=== PATIENT | male | born 1940 | race African-American/Black ===

== ENCOUNTER 2023-04-12 10:00 | Inpatient (IN) | payer MEDICAID, SELFPAY ==
[~2023-04-12] VITALS: Ht 172.7 cm; Wt 92.8 kg
[2023-04-12] VITALS (10 sets, daily range): BP systolic 83–100; BP diastolic 47–63; PULSE 91–117; RESP 18–36; TEMP 97.8–99.1; O2SAT 92–100
[~2023-04-12 10:00] MED LIST: ATEN-72 PO; OLAN15TA2 PO; QUET200T PO
[2023-04-12 10:45] LABS: BASOPHILS % (AUTO) 0.1 % (0.0-2.0); EOSINOPHILS % (AUTO) 3.4 % (1.0-6.0); HEMATOCRIT 39.5 % (41-53); HEMOGLOBIN 13.6 g/dL (13.5-17.5); LYMPHOCYTES # (AUTO) 1.3 K/uL (1.0-4.8); LYMPHOCYTES % (AUTO) 6.5 % (22.0-44.0); MEAN CORPUSCULAR HGB CONC 34.3 G/dL (31.0-37.0); MEAN CORPUSCULAR VOLUME 99 fL (80-100); MONOCYTES # (AUTO) 0.9 K/uL (0.1-1.0); MONOCYTES % (AUTO) 4.7 % (2.0-9.0); NEUTROPHILS % (AUTO) 85.3 % (40.0-70.0); PLATELET COUNT (AUTO) 156 K/uL (150-450); RBC MORPHOLOGY COMMENT NORMAL RBC MORPH; RED BLOOD CELL COUNT(AUTO) 3.99 MIL/uL (4.50-5.90); RED CELL DISTRIBUTION WIDTH 14.2 % (11.5-14.5)
[2023-04-12 10:56] LABS: CALCIUM, TOTAL 7.4 mg/dL (8.8-10.5); CREATININE 6.13 mg/dL (0.60-1.30); POTASSIUM 5.5 mmol/L (3.5-5.1)
[2023-04-12 10:58] LABS: INR 1.2 (0.9-1.1); PROTHROMBIN TIME 12.2 SEC (9.4-11.6)
[2023-04-12] MEDS ORDERED: MIDAZOLAM HCL 2 MG/2 ML VIAL IVP ONE (11:00)
[2023-04-12] MEDS ORDERED: ROCURONIUM BROMIDE 10 MG/ML 5 ML VIAL IVP ONE (11:00)
[2023-04-12 11:07] LABS: TROPONIN I-HIGH SENSITIVITY 141 ng/L (<76)
[2023-04-12 11:16] LABS: ALBUMIN 2.6 g/dL (3.4-5.0); BILIRUBIN,TOTAL 1.2 mg/dL (0.1-1.0); TOTAL PROTEIN, SERUM 6.6 g/dL (6.4-8.2)
[2023-04-12] MEDS ORDERED: SODIUM CHLORIDE 0.9% 1,250 ML IV ONE (11:30)
[2023-04-12] MEDS ORDERED: BISACODYL 10 MG RECTAL RECTAL SUPPOSITORY PR PRN (11:30)
[2023-04-12] MEDS ORDERED: ONDANSETRON HCL 4 MG/2 ML VIAL IVP PRN (11:30)
[2023-04-12 11:37] LABS: ABG BASE EXCESS -12.3 mmol/L (-2.0-3.0); ABG CARBOXYHEMOGLOBIN 0.3 % (0.0-1.5); ABG HCO3 15.7 mmol/L (22.0-26.0); ABG METHEMOGLOBIN 0.5 % (0.0-1.5); ABG OXYGEN CONTENT 19.5 mL/dL (15.0-23.0); ABG OXYGEN SATURATION 99.3 % (95.0-98.0); ABG OXYHEMOGLOBIN 98.5 % (94.0-100.0); ABG PCO2 35 mmHg (35-45); ABG PH 7.251 (7.35-7.450); ABG TOTAL HEMOGLOBIN 13.7 G/dL (12.0-18.0); SOURCE, BLOOD GAS ARTERIAL; TEMPERATURE, FAHRENHEIT, BG 98.6 FAHREN (96.0-98.6)
[2023-04-12 11:47] LABS: APPEARANCE,URINE TURBID (CLEAR); BILIRUBIN,URINE NEGATIVE (NEGATIVE); GLUCOSE, URINE (UA) NEGATIVE (NEGATIVE); KETONES,URINE NEGATIVE (NEGATIVE); LEUKOCYTE ESTERASE ,URINE LARGE (NEGATIVE); NITRATE,URINE POSITIVE (NEGATIVE); OCCULT BLOOD,URINE MODERATE (NEGATIVE); PH,URINE 6.5 (5.0-8.0); PROTEIN,URINE 300-600,SEE CONFIRM mg/dL (NEGATIVE); SPECIFIC GRAVITIY, URINE 1.009 (1.003-1.030); UROBILINOGEN,URINE <=1.0 mg/dL (<=1.0)
[2023-04-12 11:51] LABS: ALLEN TEST, BLOOD GAS Positive; O2 DEVICE,BLOOD GAS VENTILATOR (ROOM AIR); SITE, BLOOD GAS LFT RADIAL
[2023-04-12 11:52] LABS: PEEP,BG 5 cm H2O; SPONTANEOUS VT, BG 415 ml; VT, ABG 400 ml
[2023-04-12 11:57] LABS: COLOR,URINE LIGHT YELLOW (YELLOW); SULFOSALICYLIC ACID,URINE 3+ (Negative)
[2023-04-12 12:00] LABS: BACTERIA,URINE Few /HPF (None Seen); SQUAMOUS EPITHELIAL CELL,UR Rare /LPF (None Seen); WBC,URINE Full Field /HPF (0-5)
[2023-04-12] MEDS ORDERED: VANCOMYCIN HCL 1.25 GM in DEXTROSE 5%-WATER 250 ML IV ONE (12:00)
[2023-04-12] MEDS ORDERED: SODIUM CHLORIDE 0.9% 1,000 ML IV ONE (12:00)
[2023-04-12 12:07] LABS: COVID AG,FIA SOURCE NASAL SWAB
[2023-04-12] MEDS ORDERED: VANCOMYCIN HCL 1 GM in DEXTROSE 5%-WATER 250 ML IV PRN (12:15)
[2023-04-12 12:27] LABS: LACTIC ACID 2.4 mmol/L (0.4-2.0)
[2023-04-12 12:32] LABS: SARS-COV2 (COVID) ANTIGEN,FIA Negative (Negative)
[2023-04-12] MEDS ORDERED: VANCOMYCIN 1GM/WATER(PEG/NADA) 200 ML IV PRN (12:45)
[2023-04-12] MEDS ORDERED: RINGERS SOLUTION,LACTATED 1,000 ML IV ONE (14:30)
[2023-04-12 14:33] LABS: CREATININE,URINE RANDOM 53.6 mg/dL (30.0-125.0)
[2023-04-12] MEDS: PIPERACILLIN SODIUM/TAZOBACTAM 2.25 GM in DEXTROSE 5%-WATER 50 ML IV SCH ×2 (14:38→21:48)
[2023-04-12] MEDS: SODIUM BICARBONATE 75 MEQ in SODIUM CHLORIDE 0.45% 1,000 ML IV SCH ×2 (16:30→21:52)
[2023-04-12] MEDS: HEPARIN SODIUM,PORCINE 5,000 UNITS/ML VIAL SQ SCH (16:37)
[2023-04-12 16:43] LABS: CALCIUM, TOTAL 6.4 mg/dL (8.8-10.5); CREATININE 5.86 mg/dL (0.60-1.30); MAGNESIUM 2.4 mg/dL (1.80-2.40); PHOSPHORUS 8.9 mg/dL (2.5-4.9); POTASSIUM 5.9 mmol/L (3.5-5.1)
[2023-04-12 16:53] LABS: TROPONIN I-HIGH SENSITIVITY 106 ng/L (<76)
[2023-04-12] MEDS ORDERED: SODIUM POLYSTYRENE SULFONATE 15 GM/60 ML SUSPENSION BOTTLE PO ONE (18:30)
[2023-04-12] MEDS ORDERED: DEXTROSE 50%-WATER 25 GM/50 ML SYRINGE IVP ONE ×2 (18:30→18:45)
[2023-04-12] MEDS ORDERED: INSULIN REGULAR, HUMAN 100 UNITS/ML IVP ONE (18:30)
[2023-04-12] MEDS: OLANZapine 5 MG RAPDIS TABLET NG SCH (21:49)
[2023-04-12] MEDS: DEXMEDETOMIDINE HCL 400 MCG in SODIUM CHLORIDE 0.9% 96 ML IV PRN (21:50)
[2023-04-13] VITALS (19 sets, daily range): BP systolic 80–160; BP diastolic 42–67; PULSE 60–100; RESP 17–36; TEMP 99.2–100.2; O2SAT 87–99
[2023-04-13] MEDS: HEPARIN SODIUM,PORCINE 5,000 UNITS/ML VIAL SQ SCH ×4 (00:32→23:16)
[2023-04-13] MEDS ORDERED: SODIUM CHLORIDE 0.9% 500 ML IV ONE (00:45)
[2023-04-13] MEDS ORDERED: PHENYLEPHRINE 200 MG/D5%-WATER 250 ML IV PRN (00:45)
[2023-04-13] MEDS ORDERED: SODIUM CHLORIDE 0.9% 250 ML IV ONE (01:38)
[2023-04-13] MEDS: NOREPINEPHRINE 8 MG/0.9 % NACL 250 ML IV PRN ×2 (01:51→21:50)
[2023-04-13] MEDS: PIPERACILLIN SODIUM/TAZOBACTAM 2.25 GM in DEXTROSE 5%-WATER 50 ML IV SCH ×3 (06:17→23:16)
[2023-04-13 06:25] LABS: BASOPHILS % (AUTO) 0.8 % (0.0-2.0); EOSINOPHILS % (AUTO) 3.4 % (1.0-6.0); HEMATOCRIT 34.1 % (41-53); HEMOGLOBIN 11.8 g/dL (13.5-17.5); LYMPHOCYTES # (AUTO) 0.2 K/uL (1.0-4.8); MEAN CORPUSCULAR HEMOGLOBIN 34.4 pg (26.0-34.0); MEAN CORPUSCULAR HGB CONC 34.7 G/dL (31.0-37.0); MEAN CORPUSCULAR VOLUME 99 fL (80-100); MONOCYTES # (AUTO) 0.4 K/uL (0.1-1.0); MONOCYTES % (AUTO) 2.6 % (2.0-9.0); NEUTROPHILS # (AUTO) 14.9 K/uL (1.8-7.7); PLATELET COUNT (AUTO) 147 K/uL (150-450); RED BLOOD CELL COUNT(AUTO) 3.44 MIL/uL (4.50-5.90); RED CELL DISTRIBUTION WIDTH 14.7 % (11.5-14.5); WHITE BLOOD COUNT (AUTO) 16.2 K/uL (4.5-11.0)
[2023-04-13 06:26] LABS: NEUTROPHILS % (AUTO) 92.2 % (40.0-70.0)
[2023-04-13 06:28] LABS: CALCIUM, TOTAL 6.1 mg/dL (8.8-10.5); CREATININE 6.65 mg/dL (0.60-1.30); MAGNESIUM 2.5 mg/dL (1.80-2.40); PHOSPHORUS 7.8 mg/dL (2.5-4.9); POTASSIUM 3.8 mmol/L (3.5-5.1)
[2023-04-13] MEDS: SODIUM BICARBONATE 75 MEQ in SODIUM CHLORIDE 0.45% 1,000 ML IV SCH ×2 (06:49→16:43)
[2023-04-13 06:50] LABS: TROPONIN I-HIGH SENSITIVITY 124 ng/L (<76)
[2023-04-13] MEDS: PANTOPRAZOLE SODIUM 40 MG/VIAL IVP SCH (08:50)
[2023-04-13 10:22] LABS: ABG CARBOXYHEMOGLOBIN 0.1 % (0.0-1.5); ABG METHEMOGLOBIN 0.3 % (0.0-1.5); ABG OXYGEN SATURATION 98.4 % (95.0-98.0); ABG PCO2 30 mmHg (35-45); ABG PH 7.379 (7.35-7.450); ABG TOTAL HEMOGLOBIN 12.2 G/dL (12.0-18.0); PO2, ARTERIAL BG 122.5 mmHg (71.0-79.0); SOURCE, BLOOD GAS ARTERIAL; TEMPERATURE, FAHRENHEIT, BG 100.1 FAHREN (96.0-98.6)
[2023-04-13 10:23] LABS: O2 DEVICE,BLOOD GAS VENTILATOR (ROOM AIR); SITE, BLOOD GAS ARTERIAL LINE; VT, ABG 400 ml
[2023-04-13 10:24] LABS: PEEP,BG 5 cm H2O; SPONTANEOUS VT, BG 408 ml
[2023-04-13] MEDS ORDERED: NALOXONE HCL 10 MG in DEXTROSE 5%-WATER 240 ML IV PRN (11:45)
[2023-04-13] MEDS ORDERED: DOCU250C14 PO (11:49)
[2023-04-13] MEDS ORDERED: TAMS0.4C34 PO (11:49)
[2023-04-13] MEDS ORDERED: AMLO-257 PO (11:49)
[2023-04-13] MEDS ORDERED: AMAN-24 PO (11:49)
[2023-04-13] MEDS ORDERED: ATOR20TA PO (11:49)
[2023-04-13] MEDS ORDERED: SERT-158 PO (11:49)
[2023-04-13] MEDS ORDERED: RISP2TAB86 PO (11:49)
[2023-04-13] MEDS ORDERED: ACET-66 PO (11:49)
[2023-04-13] MEDS ORDERED: LISI-893 PO (11:49)
[2023-04-13] MEDS ORDERED: HEPARIN SODIUM,PORCINE 1,000 UNITS/ML VIAL IVP ONE ×2 (12:00)
[2023-04-13] MEDS: FentaNYL CIT 1000MCG/0.9% NACL 100 ML IV PRN (12:55)
[2023-04-13] MEDS: PROPOFOL 1000 MG/ISO-OSM 100 ML IV PRN (12:56)
[2023-04-13] MEDS: ACETAMINOPHEN 325 MG TABLET PO PRN (12:57)
[2023-04-13] MEDS: OLANZapine 5 MG RAPDIS TABLET NG SCH (23:16)
[2023-04-13 23:55] LABS: APPEARANCE,URINE TURBID (CLEAR); BILIRUBIN,URINE NEGATIVE (NEGATIVE); COLOR,URINE YELLOW (YELLOW); GLUCOSE, URINE (UA) NEGATIVE (NEGATIVE); KETONES,URINE NEGATIVE (NEGATIVE); LEUKOCYTE ESTERASE ,URINE LARGE (NEGATIVE); NITRATE,URINE NEGATIVE (NEGATIVE); OCCULT BLOOD,URINE LARGE (NEGATIVE); PH,URINE 5.5 (5.0-8.0); PROTEIN,URINE 100-200,SEE CONFIRM mg/dL (NEGATIVE); SPECIFIC GRAVITIY, URINE 1.013 (1.003-1.030); UROBILINOGEN,URINE <=1.0 mg/dL (<=1.0)
[2023-04-14] VITALS (21 sets, daily range): BP systolic 96–144; BP diastolic 45–92; PULSE 52–98; RESP 16–26; TEMP 97.2–99.6; O2SAT 96–99
[2023-04-14 00:06] LABS: AMORPHOUS SEDIMENT,UR Few /LPF (None Seen); BACTERIA,URINE Moderate /HPF (None Seen); SQUAMOUS EPITHELIAL CELL,UR Few /LPF (None Seen); SULFOSALICYLIC ACID,URINE 2+ (Negative); WBC,URINE 26-50 /HPF (0-5)
[2023-04-14] MEDS: SODIUM BICARBONATE 75 MEQ in SODIUM CHLORIDE 0.45% 1,000 ML IV SCH (01:07)
[2023-04-14] MEDS: PROPOFOL 1000 MG/ISO-OSM 100 ML IV PRN (02:34)
[2023-04-14] MEDS: PIPERACILLIN SODIUM/TAZOBACTAM 2.25 GM in DEXTROSE 5%-WATER 50 ML IV SCH ×3 (06:31→21:41)
[2023-04-14 06:44] LABS: CALCIUM, TOTAL 6.2 mg/dL (8.8-10.5); CREATININE 4.45 mg/dL (0.60-1.30); MAGNESIUM 2.1 mg/dL (1.80-2.40); PHOSPHORUS 4.8 mg/dL (2.5-4.9); POTASSIUM 3.1 mmol/L (3.5-5.1)
[2023-04-14] MEDS ORDERED: SODIUM CHLORIDE 0.9% 2,000 ML ONE (08:07)
[2023-04-14] MEDS: PANTOPRAZOLE SODIUM 40 MG/VIAL IVP SCH (08:10)
[2023-04-14] MEDS: ETHYL ALCOHOL 62% ANTISEPTIC NASAL SANITIZER 0.6 ML AMPUL NASAL SCH ×2 (08:10→21:41)
[2023-04-14] MEDS: HEPARIN SODIUM,PORCINE 5,000 UNITS/ML VIAL SQ SCH ×3 (08:10→23:47)
[2023-04-14] MEDS: ACETAMINOPHEN 325 MG TABLET PO PRN ×2 (08:11→18:09)
[2023-04-14] MEDS ORDERED: POTASSIUM CHL 10 MEQ/WATER 50 ML IV ONE (08:15)
[2023-04-14] MEDS: NOREPINEPHRINE 8 MG/0.9 % NACL 250 ML IV PRN (11:42)
[2023-04-14] MEDS: SODIUM CHLORIDE 0.45% 1,000 ML IV SCH ×2 (13:11→21:41)
[2023-04-14] MEDS: DEXMEDETOMIDINE HCL 400 MCG in SODIUM CHLORIDE 0.9% 96 ML IV PRN (19:26)
[2023-04-14] MEDS: OLANZapine 5 MG RAPDIS TABLET NG SCH (23:46)
[2023-04-15] VITALS (16 sets, daily range): BP systolic 106–132; BP diastolic 51–67; PULSE 50–78; RESP 14–27; TEMP 98.3–99.2; O2SAT 95–100
[2023-04-15] MEDS: NOREPINEPHRINE 8 MG/0.9 % NACL 250 ML IV PRN ×2 (02:19→12:32)
[2023-04-15] MEDS: PIPERACILLIN SODIUM/TAZOBACTAM 2.25 GM in DEXTROSE 5%-WATER 50 ML IV SCH ×3 (05:10→21:39)
[2023-04-15] MEDS: SODIUM CHLORIDE 0.45% 1,000 ML IV SCH ×3 (05:10→21:41)
[2023-04-15 05:21] LABS: EOSINOPHILS % (AUTO) 0.8 % (1.0-6.0); HEMATOCRIT 30.6 % (41-53); HEMOGLOBIN 10.5 g/dL (13.5-17.5); LYMPHOCYTES # (AUTO) 0.6 K/uL (1.0-4.8); LYMPHOCYTES % (AUTO) 4.7 % (22.0-44.0); MEAN CORPUSCULAR HEMOGLOBIN 34.1 pg (26.0-34.0); MEAN CORPUSCULAR HGB CONC 34.3 G/dL (31.0-37.0); MEAN CORPUSCULAR VOLUME 99 fL (80-100); MONOCYTES # (AUTO) 0.6 K/uL (0.1-1.0); MONOCYTES % (AUTO) 4.6 % (2.0-9.0); NEUTROPHILS # (AUTO) 11.3 K/uL (1.8-7.7); PLATELET COUNT (AUTO) 71 K/uL (150-450); RED BLOOD CELL COUNT(AUTO) 3.08 MIL/uL (4.50-5.90); RED CELL DISTRIBUTION WIDTH 14.7 % (11.5-14.5); WHITE BLOOD COUNT (AUTO) 12.6 K/uL (4.5-11.0)
[2023-04-15 05:28] LABS: NEUTROPHILS % (AUTO) 89.9 % (40.0-70.0)
[2023-04-15 05:37] LABS: ALBUMIN 1.3 g/dL (3.4-5.0); BILIRUBIN,TOTAL 0.6 mg/dL (0.1-1.0); CALCIUM, TOTAL 7.1 mg/dL (8.8-10.5); CREATININE 3.35 mg/dL (0.60-1.30); POTASSIUM 3.2 mmol/L (3.5-5.1); TOTAL PROTEIN, SERUM 4.8 g/dL (6.4-8.2); VANCOMYCIN,RANDOM 9.4 mcg/mL (25.0-50.0)
[2023-04-15] MEDS: ETHYL ALCOHOL 62% ANTISEPTIC NASAL SANITIZER 0.6 ML AMPUL NASAL SCH ×2 (07:47→21:40)
[2023-04-15] MEDS: PANTOPRAZOLE SODIUM 40 MG/VIAL IVP SCH (07:47)
[2023-04-15] MEDS ORDERED: VANCOMYCIN 1GM/WATER(PEG/NADA) 200 ML IV ONE (08:00)
[2023-04-15] MEDS: HEPARIN SODIUM,PORCINE 5,000 UNITS/ML VIAL SQ SCH ×3 (08:00→23:47)
[2023-04-15] MEDS ORDERED: POTASSIUM CHL 10 MEQ/WATER 50 ML IV ONE (10:15)
[2023-04-15] MEDS: POTASSIUM CHL 10 MEQ/WATER 50 ML IV SCH ×2 (13:02→14:18)
[2023-04-15] MEDS: ACETAMINOPHEN 325 MG TABLET PO PRN (14:06)
[2023-04-15] MEDS: DEXMEDETOMIDINE HCL 400 MCG in SODIUM CHLORIDE 0.9% 96 ML IV PRN (15:43)
[2023-04-15 16:08] LABS: ABG A-A DIFF O2 69.8 mmHg (10-20.0); ABG BASE EXCESS -0.7 mmol/L (-2.0-3.0); ABG CARBOXYHEMOGLOBIN 0.2 % (0.0-1.5); ABG HCO3 24.3 mmol/L (22.0-26.0); ABG METHEMOGLOBIN 0.3 % (0.0-1.5); ABG OXYGEN CONTENT 15.8 mL/dL (15.0-23.0); ABG OXYGEN SATURATION 97.9 % (95.0-98.0); ABG OXYHEMOGLOBIN 97.4 % (94.0-100.0); ABG PCO2 34 mmHg (35-45); ABG PH 7.448 (7.35-7.450); ABG TOTAL HEMOGLOBIN 11.4 G/dL (12.0-18.0); O2 DEVICE,BLOOD GAS VENTILATOR (ROOM AIR); PO2, ARTERIAL BG 103.5 mmHg (71.0-79.0); SITE, BLOOD GAS ARTERIAL LINE; SOURCE, BLOOD GAS ARTERIAL; TEMPERATURE, FAHRENHEIT, BG 99.2 FAHREN (96.0-98.6); VENT MODE, BG CPAP (ROOM AIR)
[2023-04-15 16:09] LABS: CPAP, BG 5 cm H2O; PRESSURE SUPPORT, BG 8 cm H2O; SPONTANEOUS VT, BG 549 ml
[2023-04-15] MEDS: OLANZapine 5 MG RAPDIS TABLET NG SCH (21:40)
[2023-04-15] MEDS: FentaNYL CIT 1000MCG/0.9% NACL 100 ML IV PRN (23:45)
[2023-04-16] VITALS (16 sets, daily range): BP systolic 97–149; BP diastolic 36–63; PULSE 55–113; RESP 17–23; TEMP 97.1–99.3; O2SAT 97–100
[2023-04-16] MEDS: DEXMEDETOMIDINE HCL 400 MCG in SODIUM CHLORIDE 0.9% 96 ML IV PRN (00:35)
[2023-04-16] MEDS: NOREPINEPHRINE 8 MG/0.9 % NACL 250 ML IV PRN (00:51)
[2023-04-16] MEDS ORDERED: SODIUM CHLORIDE 0.9% 250 ML IV ONE (05:35)
[2023-04-16] MEDS: PIPERACILLIN SODIUM/TAZOBACTAM 2.25 GM in DEXTROSE 5%-WATER 50 ML IV SCH ×3 (05:39→22:10)
[2023-04-16] MEDS: SODIUM CHLORIDE 0.45% 1,000 ML IV SCH ×3 (05:41→23:22)
[2023-04-16 07:11] LABS: CREATININE 3.79 mg/dL (0.60-1.30); MAGNESIUM 1.9 mg/dL (1.80-2.40); PHOSPHORUS 3.6 mg/dL (2.5-4.9); POTASSIUM 3.3 mmol/L (3.5-5.1)
[2023-04-16] MEDS: HEPARIN SODIUM,PORCINE 5,000 UNITS/ML VIAL SQ SCH ×2 (08:00→17:08)
[2023-04-16] MEDS ORDERED: POTASSIUM CHL 10 MEQ/WATER 50 ML IV ONE (09:00)
[2023-04-16] MEDS: ETHYL ALCOHOL 62% ANTISEPTIC NASAL SANITIZER 0.6 ML AMPUL NASAL SCH ×2 (10:17→20:57)
[2023-04-16] MEDS: PANTOPRAZOLE SODIUM 40 MG/VIAL IVP SCH (10:17)
[2023-04-16 13:03] LABS: ABG A-A DIFF O2 94.7 mmHg (10-20.0); ABG BASE EXCESS -1.2 mmol/L (-2.0-3.0); ABG METHEMOGLOBIN 0.3 % (0.0-1.5); ABG OXYGEN CONTENT 15.8 mL/dL (15.0-23.0); ABG OXYGEN SATURATION 96.8 % (95.0-98.0); ABG OXYHEMOGLOBIN 96.5 % (94.0-100.0); ABG PCO2 31 mmHg (35-45); ABG PH 7.473 (7.35-7.450); ABG TOTAL HEMOGLOBIN 11.6 G/dL (12.0-18.0); ALLEN TEST, BLOOD GAS Positive; O2 DEVICE,BLOOD GAS VENTILATOR (ROOM AIR); PEEP,BG 5 cm H2O; PO2, ARTERIAL BG 83.1 mmHg (71.0-79.0); PRESSURE SUPPORT, BG 5 cm H2O; SITE, BLOOD GAS RT RADIAL; SOURCE, BLOOD GAS ARTERIAL; SPONTANEOUS VT, BG 615 ml; TEMPERATURE, FAHRENHEIT, BG 97.1 FAHREN (96.0-98.6); VENT MODE, BG Press. Support Vent. (ROOM AIR)
[2023-04-16] MEDS ORDERED: HEPARIN SODIUM,PORCINE 1,000 UNITS/ML VIAL IVP ONE (16:25)
[2023-04-16] MEDS: OLANZapine 5 MG RAPDIS TABLET NG SCH (20:57)
[2023-04-16] MEDS ORDERED: *CLINICAL-CEFEPIME DOSING CLINICAL ONE (23:30)
[2023-04-17] VITALS (7 sets, daily range): BP systolic 107–123; BP diastolic 40–64; PULSE 92–107; RESP 19–25; TEMP 96–98; O2SAT 97–99
[2023-04-17] MEDS ORDERED: CEFEPIME HCL 2 GM in DEXTROSE 5%-WATER 50 ML IV SCH ×2
[2023-04-17] MEDS: HEPARIN SODIUM,PORCINE 5,000 UNITS/ML VIAL SQ SCH ×2 (00:01→08:00)
[2023-04-17 05:28] LABS: BASOPHILS % (AUTO) 0.1 % (0.0-2.0); EOSINOPHILS % (AUTO) 0.8 % (1.0-6.0); HEMATOCRIT 28.2 % (41-53); HEMOGLOBIN 9.6 g/dL (13.5-17.5); LYMPHOCYTES # (AUTO) 0.5 K/uL (1.0-4.8); LYMPHOCYTES % (AUTO) 3.2 % (22.0-44.0); MEAN CORPUSCULAR HEMOGLOBIN 33.9 pg (26.0-34.0); MEAN CORPUSCULAR VOLUME 100 fL (80-100); MONOCYTES # (AUTO) 0.7 K/uL (0.1-1.0); MONOCYTES % (AUTO) 4.4 % (2.0-9.0); NEUTROPHILS # (AUTO) 15.3 K/uL (1.8-7.7); PLATELET COUNT (AUTO) 102 K/uL (150-450); RED BLOOD CELL COUNT(AUTO) 2.83 MIL/uL (4.50-5.90); RED CELL DISTRIBUTION WIDTH 15.1 % (11.5-14.5); WHITE BLOOD COUNT (AUTO) 16.7 K/uL (4.5-11.0)
[2023-04-17 05:50] LABS: MAGNESIUM 1.7 mg/dL (1.80-2.40); PHOSPHORUS 4.2 mg/dL (2.5-4.9)
[2023-04-17 05:58] LABS: NEUTROPHILS % (AUTO) 91.5 % (40.0-70.0)
[2023-04-17 06:09] LABS: BILIRUBIN,TOTAL 0.5 mg/dL (0.1-1.0); CALCIUM, TOTAL 7.1 mg/dL (8.8-10.5); CREATININE 3.14 mg/dL (0.60-1.30); POTASSIUM 3.5 mmol/L (3.5-5.1); TOTAL PROTEIN, SERUM 4.3 g/dL (6.4-8.2)
[2023-04-17] MEDS: SODIUM CHLORIDE 0.45% 1,000 ML IV SCH ×3 (06:42→23:37)
[2023-04-17] MEDS: PANTOPRAZOLE SODIUM 40 MG/VIAL IVP SCH (08:52)
[2023-04-17] MEDS: ETHYL ALCOHOL 62% ANTISEPTIC NASAL SANITIZER 0.6 ML AMPUL NASAL SCH ×2 (08:53→20:58)
[2023-04-17] MEDS ORDERED: POVIDONE-IODINE 10% 240 ML SOLUTION TP SCH (19:45)
[2023-04-17] MEDS: CEFEPIME HCL 1 GM in DEXTROSE 5%-WATER 50 ML IV SCH (20:58)
[2023-04-17] MEDS: OLANZapine 5 MG RAPDIS TABLET NG SCH (20:59)
[2023-04-18] VITALS: BP 123/59; PULSE 106; RESP 19; TEMP 97.6; O2SAT 97
[2023-04-18 04:00] VITALS: BP 131/63; PULSE 102; RESP 18; TEMP 97.9; O2SAT 96
[2023-04-18 05:08] LABS: BASOPHILS % (AUTO) 0.1 % (0.0-2.0); EOSINOPHILS % (AUTO) 0.8 % (1.0-6.0); HEMATOCRIT 26.5 % (41-53); LYMPHOCYTES # (AUTO) 0.6 K/uL (1.0-4.8); LYMPHOCYTES % (AUTO) 3.5 % (22.0-44.0); MEAN CORPUSCULAR HEMOGLOBIN 33.7 pg (26.0-34.0); MEAN CORPUSCULAR HGB CONC 34.1 G/dL (31.0-37.0); MEAN CORPUSCULAR VOLUME 99 fL (80-100); MONOCYTES # (AUTO) 0.7 K/uL (0.1-1.0); MONOCYTES % (AUTO) 4.2 % (2.0-9.0); NEUTROPHILS # (AUTO) 15.1 K/uL (1.8-7.7); PLATELET COUNT (AUTO) 155 K/uL (150-450); RED BLOOD CELL COUNT(AUTO) 2.68 MIL/uL (4.50-5.90); RED CELL DISTRIBUTION WIDTH 15.4 % (11.5-14.5); WHITE BLOOD COUNT (AUTO) 16.6 K/uL (4.5-11.0)
[2023-04-18 05:14] LABS: NEUTROPHILS % (AUTO) 91.4 % (40.0-70.0)
[2023-04-18 05:20] LABS: BILIRUBIN,TOTAL 0.5 mg/dL (0.1-1.0); CREATININE 3.21 mg/dL (0.60-1.30); POTASSIUM 3.4 mmol/L (3.5-5.1); TOTAL PROTEIN, SERUM 4.4 g/dL (6.4-8.2)
[2023-04-18 05:40] LABS: MAGNESIUM 1.7 mg/dL (1.80-2.40); PHOSPHORUS 4.7 mg/dL (2.5-4.9); VANCOMYCIN,RANDOM 11.4 mcg/mL (25.0-50.0)
[2023-04-18 08:00] VITALS: BP 120/85; PULSE 74; PULSE 99; RESP 17; TEMP 97.8; O2SAT 96
[2023-04-18] MEDS: PANTOPRAZOLE SODIUM 40 MG/VIAL IVP SCH (08:03)
[2023-04-18] MEDS: SODIUM CHLORIDE 0.45% 1,000 ML IV SCH ×2 (08:03→17:09)
[2023-04-18] MEDS: ETHYL ALCOHOL 62% ANTISEPTIC NASAL SANITIZER 0.6 ML AMPUL NASAL SCH ×2 (08:04→20:27)
[2023-04-18] MEDS: POVIDONE-IODINE 10% 240 ML SOLUTION TP SCH (08:04)
[2023-04-18] MEDS ORDERED: VANCOMYCIN 1GM/WATER(PEG/NADA) 200 ML IV ONE (11:00)
[2023-04-18 12:00] VITALS: BP 119/63; PULSE 102; PULSE 94; RESP 18; TEMP 99.4; O2SAT 92
[2023-04-18] MEDS ORDERED: SODIUM CHLORIDE 0.9% 250 ML IV ONE (12:28)
[2023-04-18 16:00] VITALS: BP 129/84; PULSE 97; PULSE 99; RESP 18; TEMP 98.3; O2SAT 98
[2023-04-18] MEDS ORDERED: MAGNESIUM SULFATE 2 GM/WATER 50 ML IV ONE (19:15)
[2023-04-18 20:00] VITALS: BP 134/76; PULSE 99; RESP 23; TEMP 100.3; O2SAT 97
[2023-04-18] MEDS: CEFEPIME HCL 1 GM in DEXTROSE 5%-WATER 50 ML IV SCH (20:26)
[2023-04-18] MEDS: OLANZapine 5 MG RAPDIS TABLET NG SCH (20:28)
[2023-04-18] MEDS ORDERED: SODIUM CHLORIDE 0.9% 500 ML IV ONE (20:32)
[2023-04-18] MEDS: ACETAMINOPHEN 325 MG TABLET PO PRN (20:35)
[2023-04-18] MEDS: POTASSIUM CHL 10 MEQ/WATER 50 ML IV SCH ×3 (20:36→23:11)
[2023-04-19] VITALS (7 sets, daily range): BP systolic 118–156; BP diastolic 59–68; PULSE 85–97; RESP 17–22; TEMP 97.9–98.5; O2SAT 96–98
[2023-04-19] MEDS: SODIUM CHLORIDE 0.45% 1,000 ML IV SCH ×3 (01:52→17:27)
[2023-04-19 07:05] LABS: BASOPHILS % (AUTO) 0.1 % (0.0-2.0); EOSINOPHILS % (AUTO) 0.6 % (1.0-6.0); HEMATOCRIT 27.7 % (41-53); HEMOGLOBIN 9.5 g/dL (13.5-17.5); LYMPHOCYTES # (AUTO) 0.6 K/uL (1.0-4.8); LYMPHOCYTES % (AUTO) 3.2 % (22.0-44.0); MEAN CORPUSCULAR HEMOGLOBIN 33.8 pg (26.0-34.0); MEAN CORPUSCULAR HGB CONC 34.3 G/dL (31.0-37.0); MEAN CORPUSCULAR VOLUME 99 fL (80-100); MONOCYTES # (AUTO) 0.7 K/uL (0.1-1.0); MONOCYTES % (AUTO) 3.9 % (2.0-9.0); NEUTROPHILS # (AUTO) 15.8 K/uL (1.8-7.7); PLATELET COUNT (AUTO) 229 K/uL (150-450); RED CELL DISTRIBUTION WIDTH 14.9 % (11.5-14.5); WHITE BLOOD COUNT (AUTO) 17.2 K/uL (4.5-11.0)
[2023-04-19 07:33] LABS: NEUTROPHILS % (AUTO) 92.2 % (40.0-70.0)
[2023-04-19 07:52] LABS: BILIRUBIN,TOTAL 0.5 mg/dL (0.1-1.0); CALCIUM, TOTAL 7.3 mg/dL (8.8-10.5); CREATININE 2.91 mg/dL (0.60-1.30); PHOSPHORUS 4.3 mg/dL (2.5-4.9); POTASSIUM 3.5 mmol/L (3.5-5.1); TOTAL PROTEIN, SERUM 4.8 g/dL (6.4-8.2)
[2023-04-19] MEDS: POVIDONE-IODINE 10% 240 ML SOLUTION TP SCH (09:31)
[2023-04-19] MEDS: PANTOPRAZOLE SODIUM 40 MG/VIAL IVP SCH (09:31)
[2023-04-19] MEDS: ETHYL ALCOHOL 62% ANTISEPTIC NASAL SANITIZER 0.6 ML AMPUL NASAL SCH ×2 (09:31→20:10)
[2023-04-19] MEDS: CEFEPIME HCL 1 GM in DEXTROSE 5%-WATER 50 ML IV SCH (20:10)
[2023-04-19] MEDS: OLANZapine 5 MG RAPDIS TABLET NG SCH (20:10)
[2023-04-20] MEDS: SODIUM CHLORIDE 0.45% 1,000 ML IV SCH ×2 (01:58→09:33)
[2023-04-20 04:38] VITALS: BP 153/67; PULSE 90; RESP 19; TEMP 98.4; O2SAT 99
[2023-04-20 07:07] LABS: BASOPHILS % (AUTO) 0.3 % (0.0-2.0); EOSINOPHILS % (AUTO) 0.5 % (1.0-6.0); HEMATOCRIT 26.8 % (41-53); HEMOGLOBIN 9.1 g/dL (13.5-17.5); LYMPHOCYTES # (AUTO) 0.6 K/uL (1.0-4.8); LYMPHOCYTES % (AUTO) 3.3 % (22.0-44.0); MEAN CORPUSCULAR HEMOGLOBIN 33.6 pg (26.0-34.0); MEAN CORPUSCULAR HGB CONC 34.1 G/dL (31.0-37.0); MEAN CORPUSCULAR VOLUME 98 fL (80-100); MONOCYTES # (AUTO) 0.9 K/uL (0.1-1.0); MONOCYTES % (AUTO) 4.5 % (2.0-9.0); NEUTROPHILS # (AUTO) 17.6 K/uL (1.8-7.7); PLATELET COUNT (AUTO) 325 K/uL (150-450); RED BLOOD CELL COUNT(AUTO) 2.72 MIL/uL (4.50-5.90); RED CELL DISTRIBUTION WIDTH 14.9 % (11.5-14.5); WHITE BLOOD COUNT (AUTO) 19.3 K/uL (4.5-11.0)
[2023-04-20 07:11] LABS: NEUTROPHILS % (AUTO) 91.4 % (40.0-70.0)
[2023-04-20 07:58] LABS: ALBUMIN 1.1 g/dL (3.4-5.0); BILIRUBIN,TOTAL 0.4 mg/dL (0.1-1.0); CALCIUM, TOTAL 7.3 mg/dL (8.8-10.5); CREATININE 2.59 mg/dL (0.60-1.30); MAGNESIUM 1.8 mg/dL (1.80-2.40); PHOSPHORUS 3.8 mg/dL (2.5-4.9); POTASSIUM 3.5 mmol/L (3.5-5.1)
[2023-04-20 08:15] LABS: VANCOMYCIN,RANDOM 13.3 mcg/mL (25.0-50.0)
[2023-04-20 08:30] VITALS: BP 166/70; PULSE 89; RESP 22; TEMP 98.5; O2SAT 100
[2023-04-20] MEDS: PANTOPRAZOLE SODIUM 40 MG/VIAL IVP SCH (09:42)
[2023-04-20] MEDS: ETHYL ALCOHOL 62% ANTISEPTIC NASAL SANITIZER 0.6 ML AMPUL NASAL SCH ×2 (09:42→19:49)
[2023-04-20] MEDS: POVIDONE-IODINE 10% 240 ML SOLUTION TP SCH (09:42)
[2023-04-20] MEDS ORDERED: VANCOMYCIN 1GM/WATER(PEG/NADA) 200 ML IV ONE (10:00)
[2023-04-20 12:00] VITALS: BP 152/72; PULSE 87; RESP 20; TEMP 98.6; O2SAT 97
[2023-04-20] MEDS ORDERED: EPOETIN ALFA 10,000 UNITS/ML VIAL SQ ONE (12:00)
[2023-04-20 16:30] VITALS: BP 116/75; PULSE 107; RESP 20; TEMP 98.6; O2SAT 99
[2023-04-20] MEDS ORDERED: LEVOFLOXACIN 750 MG/D5% WATER 150 ML IV SCH (17:00)
[2023-04-20] MEDS ORDERED: SODIUM CHLORIDE 0.9% 250 ML IV ONE (18:29)
[2023-04-20] MEDS: LEVOFLOXACIN 750 MG/D5% WATER 150 ML IV SCH (18:31)
[2023-04-20] MEDS: OLANZapine 5 MG RAPDIS TABLET NG SCH (19:48)
[2023-04-20] MEDS: CEFEPIME HCL 1 GM in DEXTROSE 5%-WATER 50 ML IV SCH (19:48)
[2023-04-20 20:02] VITALS: BP 153/67; PULSE 92; RESP 19; TEMP 98.2; O2SAT 100
[2023-04-21] VITALS (8 sets, daily range): BP systolic 132–158; BP diastolic 59–69; PULSE 77–86; RESP 19–20; TEMP 97.9–98.6; O2SAT 95–96
[2023-04-21 07:09] LABS: BASOPHILS % (AUTO) 0.2 % (0.0-2.0); EOSINOPHILS % (AUTO) 1.1 % (1.0-6.0); HEMATOCRIT 24.2 % (41-53); HEMOGLOBIN 8.2 g/dL (13.5-17.5); LYMPHOCYTES # (AUTO) 0.8 K/uL (1.0-4.8); LYMPHOCYTES % (AUTO) 5.4 % (22.0-44.0); MEAN CORPUSCULAR HEMOGLOBIN 33.5 pg (26.0-34.0); MEAN CORPUSCULAR VOLUME 99 fL (80-100); MONOCYTES # (AUTO) 0.8 K/uL (0.1-1.0); MONOCYTES % (AUTO) 5.6 % (2.0-9.0); NEUTROPHILS # (AUTO) 12.7 K/uL (1.8-7.7); PLATELET COUNT (AUTO) 374 K/uL (150-450); RED BLOOD CELL COUNT(AUTO) 2.46 MIL/uL (4.50-5.90); WHITE BLOOD COUNT (AUTO) 14.5 K/uL (4.5-11.0)
[2023-04-21 07:14] LABS: NEUTROPHILS % (AUTO) 87.7 % (40.0-70.0)
[2023-04-21 07:25] LABS: ALBUMIN 1.1 g/dL (3.4-5.0); BILIRUBIN,TOTAL 0.4 mg/dL (0.1-1.0); CALCIUM, TOTAL 7.1 mg/dL (8.8-10.5); CREATININE 2.27 mg/dL (0.60-1.30); POTASSIUM 3.5 mmol/L (3.5-5.1); TOTAL PROTEIN, SERUM 4.7 g/dL (6.4-8.2)
[2023-04-21] MEDS: SODIUM CHLORIDE 0.45% 1,000 ML IV SCH (08:29)
[2023-04-21] MEDS: PANTOPRAZOLE SODIUM 40 MG/VIAL IVP SCH (08:29)
[2023-04-21] MEDS: ETHYL ALCOHOL 62% ANTISEPTIC NASAL SANITIZER 0.6 ML AMPUL NASAL SCH ×2 (08:29→19:47)
[2023-04-21] MEDS: POVIDONE-IODINE 10% 240 ML SOLUTION TP SCH (09:10)
[2023-04-21] MEDS: OLANZapine 5 MG RAPDIS TABLET NG SCH (19:47)
[2023-04-21] MEDS: ACETAMINOPHEN 325 MG TABLET PO PRN (19:47)
[2023-04-21] MEDS: CEFEPIME HCL 1 GM in DEXTROSE 5%-WATER 50 ML IV SCH (19:48)
[2023-04-22] VITALS (9 sets, daily range): BP systolic 123–150; BP diastolic 56–71; PULSE 65–98; RESP 18–26; TEMP 97.5–98.4; O2SAT 96–98
[2023-04-22 07:07] LABS: BASOPHILS % (AUTO) 0.2 % (0.0-2.0); EOSINOPHILS % (AUTO) 0.7 % (1.0-6.0); HEMATOCRIT 25.9 % (41-53); HEMOGLOBIN 8.8 g/dL (13.5-17.5); MEAN CORPUSCULAR HEMOGLOBIN 33.5 pg (26.0-34.0); MEAN CORPUSCULAR HGB CONC 33.8 G/dL (31.0-37.0); MEAN CORPUSCULAR VOLUME 99 fL (80-100); MONOCYTES # (AUTO) 0.9 K/uL (0.1-1.0); MONOCYTES % (AUTO) 6.5 % (2.0-9.0); NEUTROPHILS # (AUTO) 11.7 K/uL (1.8-7.7); PLATELET COUNT (AUTO) 394 K/uL (150-450); RED BLOOD CELL COUNT(AUTO) 2.62 MIL/uL (4.50-5.90); RED CELL DISTRIBUTION WIDTH 15.2 % (11.5-14.5); WHITE BLOOD COUNT (AUTO) 13.6 K/uL (4.5-11.0)
[2023-04-22 07:08] LABS: NEUTROPHILS % (AUTO) 85.6 % (40.0-70.0)
[2023-04-22 07:26] LABS: ALBUMIN 1.2 g/dL (3.4-5.0); BILIRUBIN,TOTAL 0.4 mg/dL (0.1-1.0); CALCIUM, TOTAL 7.2 mg/dL (8.8-10.5); CREATININE 2.32 mg/dL (0.60-1.30); POTASSIUM 3.5 mmol/L (3.5-5.1); TOTAL PROTEIN, SERUM 4.9 g/dL (6.4-8.2); VANCOMYCIN,RANDOM 13.4 mcg/mL (25.0-50.0)
[2023-04-22] MEDS ORDERED: VANCOMYCIN 1GM/WATER(PEG/NADA) 200 ML IV SCH (08:00)
[2023-04-22] MEDS: PANTOPRAZOLE SODIUM 40 MG/VIAL IVP SCH (08:44)
[2023-04-22] MEDS: ETHYL ALCOHOL 62% ANTISEPTIC NASAL SANITIZER 0.6 ML AMPUL NASAL SCH ×2 (08:44→21:21)
[2023-04-22] MEDS: SODIUM CHLORIDE 0.45% 1,000 ML IV SCH (08:45)
[2023-04-22] MEDS: POVIDONE-IODINE 10% 240 ML SOLUTION TP SCH (09:45)
[2023-04-22] MEDS: LEVOFLOXACIN 750 MG/D5% WATER 150 ML IV SCH (18:10)
[2023-04-22] MEDS: CEFEPIME HCL 1 GM in DEXTROSE 5%-WATER 50 ML IV SCH (21:21)
[2023-04-22] MEDS: OLANZapine 5 MG RAPDIS TABLET NG SCH (21:21)
[2023-04-22] MEDS: ACETAMINOPHEN 325 MG TABLET PO PRN (21:22)
[2023-04-23] VITALS (7 sets, daily range): BP systolic 144–155; BP diastolic 65–81; PULSE 72–88; RESP 19–28; TEMP 97.6–98.3; O2SAT 97–99
[2023-04-23 07:02] LABS: BASOPHILS % (AUTO) 0.4 % (0.0-2.0); EOSINOPHILS % (AUTO) 0.8 % (1.0-6.0); HEMATOCRIT 24.5 % (41-53); HEMOGLOBIN 8.3 g/dL (13.5-17.5); LYMPHOCYTES # (AUTO) 0.9 K/uL (1.0-4.8); LYMPHOCYTES % (AUTO) 7.5 % (22.0-44.0); MEAN CORPUSCULAR HEMOGLOBIN 33.4 pg (26.0-34.0); MEAN CORPUSCULAR HGB CONC 33.8 G/dL (31.0-37.0); MEAN CORPUSCULAR VOLUME 99 fL (80-100); MONOCYTES # (AUTO) 0.9 K/uL (0.1-1.0); MONOCYTES % (AUTO) 6.9 % (2.0-9.0); NEUTROPHILS # (AUTO) 10.5 K/uL (1.8-7.7); NEUTROPHILS % (AUTO) 84.4 % (40.0-70.0); PLATELET COUNT (AUTO) 458 K/uL (150-450); RED BLOOD CELL COUNT(AUTO) 2.48 MIL/uL (4.50-5.90); RED CELL DISTRIBUTION WIDTH 15.2 % (11.5-14.5); WHITE BLOOD COUNT (AUTO) 12.5 K/uL (4.5-11.0)
[2023-04-23 07:26] LABS: ALBUMIN 1.2 g/dL (3.4-5.0); BILIRUBIN,TOTAL 0.4 mg/dL (0.1-1.0); CREATININE 2.63 mg/dL (0.60-1.30); POTASSIUM 3.4 mmol/L (3.5-5.1); TOTAL PROTEIN, SERUM 4.7 g/dL (6.4-8.2)
[2023-04-23] MEDS: ACETAMINOPHEN 325 MG TABLET PO PRN (07:55)
[2023-04-23] MEDS: ETHYL ALCOHOL 62% ANTISEPTIC NASAL SANITIZER 0.6 ML AMPUL NASAL SCH (07:55)
[2023-04-23] MEDS: PANTOPRAZOLE SODIUM 40 MG/VIAL IVP SCH (07:55)
[2023-04-23] MEDS ORDERED: POTASSIUM CHLORIDE 20 MEQ ER TABLET PO ONE (15:30)
== END 2023-04-23 16:35 | DRG 720 ==
LOC: EMS 10:22 → ICU 11:56 → 5S 04-19 00:07
PROVIDERS: ADMIT Internal Medicine; ATTEND Internal Medicine
PROC: 5A1955Z Respiratory Ventilation, Greater than 96 Consecutive Hours (ICD-10-PCS; principal; 2023-04-12)
PROC: 0BH17EZ Insertion of Endotracheal Airway into Trachea, Via Natural or Artificial Opening (ICD-10-PCS; 2023-04-12)
PROC: 05HB33Z Insertion of Infusion Device into Right Basilic Vein, Percutaneous Approach (ICD-10-PCS; 2023-04-12)
PROC: B54MZZA Ultrasonography of Right Upper Extremity Veins, Guidance (ICD-10-PCS; 2023-04-12)
PROC: 05HC33Z Insertion of Infusion Device into Left Basilic Vein, Percutaneous Approach (ICD-10-PCS; 2023-04-12)
PROC: B54NZZA Ultrasonography of Left Upper Extremity Veins, Guidance (ICD-10-PCS; 2023-04-12)
PROC: 5A1D70Z Performance of Urinary Filtration, Intermittent, Less than 6 Hours Per Day (ICD-10-PCS; 2023-04-13)
PROC: 04HY32Z Insertion of Monitoring Device into Lower Artery, Percutaneous Approach (ICD-10-PCS; 2023-04-13)
PROC: 06HY33Z Insertion of Infusion Device into Lower Vein, Percutaneous Approach (ICD-10-PCS; 2023-04-13)
PROC: B54CZZA Ultrasonography of Left Lower Extremity Veins, Guidance (ICD-10-PCS; 2023-04-13)
PROC: 5A1D70Z Performance of Urinary Filtration, Intermittent, Less than 6 Hours Per Day (ICD-10-PCS; 2023-04-14)
PROC: 5A1D70Z Performance of Urinary Filtration, Intermittent, Less than 6 Hours Per Day (ICD-10-PCS; 2023-04-16)
DX: A41.52 Sepsis due to Pseudomonas (principal); J96.01 Acute respiratory failure with hypoxia; N17.0 Acute kidney failure with tubular necrosis; R65.21 Severe sepsis with septic shock; G92.8 Other toxic encephalopathy; I13.0 Hypertensive heart and chronic kidney disease with heart failure and stage 1 through stage 4 chronic kidney disease, or unspecified chronic kidney disease; J18.9 Pneumonia, unspecified organism; E87.1 Hypo-osmolality and hyponatremia; D63.8 Anemia in other chronic diseases classified elsewhere; I50.9 Heart failure, unspecified; E86.0 Dehydration; E87.20 Acidosis, unspecified; F25.9 Schizoaffective disorder, unspecified; E87.5 Hyperkalemia; R79.89 Other specified abnormal findings of blood chemistry; M62.82 Rhabdomyolysis; E87.6 Hypokalemia; N18.9 Chronic kidney disease, unspecified; Z99.11 Dependence on respirator [ventilator] status; F11.20 Opioid dependence, uncomplicated; Z20.822 Contact with and (suspected) exposure to COVID-19; N13.6 Pyonephrosis; Z99.2 Dependence on renal dialysis; Z87.891 Personal history of nicotine dependence
CPT/HCPCS: 36245; 36569; 36600; 70450; 71045; 71250; 72192; 74150; 76770; 76937; 80048; 80053; 80202; 81001; 81002; 82550; 82570; 82805; 83605; 83735; 83880; 84100; 84132; 84300; 84484; 84540; 85025; 85610; 85730; 87040; 87070; 87077; 87081; 87086; 87186; 87205; 87340; 90935; 92526; 92610; 93005; 93306; 93971; 94002; 94003; 97110; 97162; 97530; 99291; C9113; G0378; J0692; J0885; J1644; J1815; J1956; J2250; J2370; J2405; J2543; J2704; J3370; J3475; J3480; J3490; J7030; J7040; J7050; J7060; J7120; Q9967; 36415-L1; 36415-TC

== ENCOUNTER 2023-09-15 09:06 | Inpatient (IN) | payer MEDICAID ==
[~2023-09-15] VITALS: Ht 182.9 cm; Wt 77.3 kg
[~2023-09-15 09:06] MED LIST changes: -ATEN-72 PO; +ATOR20TA PO; +DOCU250C14 PO; -OLAN15TA2 PO; -QUET200T PO
[2023-09-15] MEDS ORDERED: RISP1TAB48 PO (09:22)
[2023-09-15] MEDS ORDERED: TRAZ-257 PO (09:22)
[2023-09-15] MEDS ORDERED: ACET-66 PO (09:22)
[2023-09-15] MEDS ORDERED: GABA-1181 PO (09:22)
[2023-09-15] MEDS ORDERED: ATOR20TA65 PO (09:22)
[2023-09-15] MEDS ORDERED: PANT40TA54 PO (09:22)
[2023-09-15] MEDS ORDERED: MEMA5TAB42 PO (09:22)
[2023-09-15] MEDS ORDERED: HYDR25TA84 PO (09:22)
[2023-09-15 09:50] LABS: BASOPHILS % (AUTO) 0.3 % (0.0-2.0); EOSINOPHILS % (AUTO) 2.7 % (1.0-6.0); HEMATOCRIT 33.8 % (41-53); HEMOGLOBIN 11.5 g/dL (13.5-17.5); LYMPHOCYTES # (AUTO) 1.4 K/uL (1.0-4.8); LYMPHOCYTES % (AUTO) 25.2 % (22.0-44.0); MEAN CORPUSCULAR HEMOGLOBIN 33.6 pg (26.0-34.0); MEAN CORPUSCULAR VOLUME 99 fL (80-100); MONOCYTES # (AUTO) 0.5 K/uL (0.1-1.0); MONOCYTES % (AUTO) 8.6 % (2.0-9.0); NEUTROPHILS # (AUTO) 3.5 K/uL (1.8-7.7); NEUTROPHILS % (AUTO) 63.2 % (40.0-70.0); PLATELET COUNT (AUTO) 271 K/uL (150-450); RED BLOOD CELL COUNT(AUTO) 3.41 MIL/uL (4.50-5.90); RED CELL DISTRIBUTION WIDTH 13.1 % (11.5-14.5); WHITE BLOOD COUNT (AUTO) 5.6 K/uL (4.5-11.0)
[2023-09-15 09:58] LABS: ANION GAP 9 mmol/L (8-16); CALCIUM, TOTAL 8.7 mg/dL (8.8-10.5); CARBON DIOXIDE 26 mmol/L (22-29); CHLORIDE 100 mmol/L (98-107); CREATININE 1.13 mg/dL (0.60-1.30); GLOMERULAR FILTR. RATE CALC > 60 mL/min (>60); GLUCOSE,RANDOM 80 mg/dL (70-110); POTASSIUM 3.9 mmol/L (3.5-5.1); SODIUM SERUM 135 mmol/L (136-145); UREA NITROGEN, BLOOD 12 mg/dL (7-18)
[2023-09-15 10:05] LABS: B-TYPE NATRIURETIC PEPTIDE 39 pg/mL (0-100); TROPONIN I-HIGH SENSITIVITY 8 ng/L (<76)
[2023-09-15 10:08] LABS: INR 1.1 (0.9-1.1); PROTHROMBIN TIME 11.3 SEC (9.4-11.6)
[2023-09-15 10:10] LABS: APPEARANCE,URINE HAZY (CLEAR); BILIRUBIN,URINE NEGATIVE (NEGATIVE); COLOR,URINE LIGHT YELLOW (YELLOW); GLUCOSE, URINE (UA) NEGATIVE (NEGATIVE); KETONES,URINE NEGATIVE (NEGATIVE); LEUKOCYTE ESTERASE ,URINE LARGE (NEGATIVE); NITRATE,URINE POSITIVE (NEGATIVE); OCCULT BLOOD,URINE TRACE (NEGATIVE); PH,URINE 6.5 (5.0-8.0); PROTEIN,URINE NEGATIVE (NEGATIVE); SPECIFIC GRAVITIY, URINE 1.004 (1.003-1.030); UROBILINOGEN,URINE <=1.0 mg/dL (<=1.0)
[2023-09-15 10:22] LABS: ALANINE AMINOTRANSFERASE 21 U/L (12-78); ALBUMIN 3.4 g/dL (3.4-5.0); ALKALINE PHOSPHATASE 66 U/L (46-116); ASPARTATE AMINOTRANSFERASE 17 U/L (15-37); BILIRUBIN,TOTAL 0.2 mg/dL (0.1-1.0); CREATINE KINASE, TOTAL ONLY 152 U/L (39-308); TOTAL PROTEIN, SERUM 7.1 g/dL (6.4-8.2)
[2023-09-15 10:31] LABS: BACTERIA,URINE Many /HPF (None Seen); RBC,URINE 0-2 /HPF (0-2); WBC,URINE 51-100 /HPF (0-5)
[2023-09-15] MEDS: CefTRIAXone 1 GM/DEXTROSE 50 ML IV ONE (11:31)
[2023-09-15] MEDS ORDERED: CefTRIAXone 1 GM/DEXTROSE 50 ML IV SCH (13:30)
[2023-09-15] MEDS ORDERED: MAGNESIUM HYDROXIDE SUSPENSION 30 ML UDCUP PO PRN (13:30)
[2023-09-15] MEDS ORDERED: ONDANSETRON HCL 4 MG/2 ML VIAL IVP PRN ×2 (13:30)
[2023-09-15] MEDS ORDERED: MORPHINE SULFATE 2 MG/ML SYRINGE IVP PRN (13:30)
[2023-09-15] MEDS ORDERED: RisperiDONE 1 MG TABLET PO SCH (13:30)
[2023-09-15] MEDS ORDERED: PANTOPRAZOLE SODIUM 40 MG DR TABLET PO SCH (13:30)
[2023-09-15] MEDS ORDERED: ACETAMINOPHEN 500 MG TABLET PO PRN (13:30)
[2023-09-15] MEDS ORDERED: 0.9% SODIUM CHLORIDE 10 ML SYRINGE IVP PRN (13:30)
[2023-09-15] MEDS ORDERED: BISACODYL 10 MG RECTAL RECTAL SUPPOSITORY PR PRN (13:30)
[2023-09-15] MEDS ORDERED: ENOXAPARIN SODIUM 40 MG/0.4 ML PF SYRINGE SQ SCH (13:30)
[2023-09-15] MEDS ORDERED: ZOLPIDEM TARTRATE 5 MG TABLET PO PRN (13:30)
[2023-09-15] MEDS ORDERED: ASPIRIN 81 MG CHEWABLE TABLET PO SCH (13:30)
[2023-09-15] MEDS ORDERED: GABAPENTIN 300 MG CAPSULE PO SCH (13:30)
[2023-09-15 14:20] LABS: COVID AG,FIA SOURCE NASAL SWAB
[2023-09-15 14:37] LABS: SARS-COV2 (COVID) ANTIGEN,FIA Negative (Negative)
[2023-09-15] MEDS ORDERED: HydrALAZINE HCL 25 MG TABLET PO SCH (16:00)
[2023-09-15] MEDS: HydrALAZINE HCL 25 MG TABLET PO SCH (16:43)
[2023-09-15] MEDS: HEPARIN SODIUM,PORCINE 5,000 UNITS/ML VIAL SQ SCH (16:43)
[2023-09-15 16:47] VITALS: BP 179/94; PULSE 80; RESP 19; TEMP 98
[2023-09-15 19:39] VITALS: BP 166/87; PULSE 81; RESP 16; TEMP 97.5
[2023-09-15] MEDS ORDERED: TraZODone HCL 100 MG TABLET PO SCH (21:00)
[2023-09-15] MEDS ORDERED: MEMANTINE HCL 5 MG TABLET PO SCH (21:00)
[2023-09-15] MEDS: DOCUSATE SODIUM 100 MG CAPSULE PO SCH (21:44)
[2023-09-15] MEDS: MEMANTINE HCL 5 MG TABLET PO SCH (21:44)
[2023-09-15] MEDS: TraZODone HCL 100 MG TABLET PO SCH (21:45)
[2023-09-15] MEDS: SODIUM CHLORIDE 0.9% 1,000 ML IV ONE (22:01)
[2023-09-16 04:15] VITALS: BP 145/67; PULSE 66; RESP 16; TEMP 97.5
[2023-09-16] MEDS: ACETAMINOPHEN 325 MG TABLET PO PRN (05:23)
[2023-09-16] MEDS: CefTRIAXone 1 GM/DEXTROSE 50 ML IV SCH (05:59)
[2023-09-16 06:29] LABS: BASOPHILS % (AUTO) 0.4 % (0.0-2.0); EOSINOPHILS % (AUTO) 2.3 % (1.0-6.0); HEMATOCRIT 31.3 % (41-53); HEMOGLOBIN 10.8 g/dL (13.5-17.5); LYMPHOCYTES # (AUTO) 1.3 K/uL (1.0-4.8); LYMPHOCYTES % (AUTO) 24.4 % (22.0-44.0); MEAN CORPUSCULAR HGB CONC 34.7 G/dL (31.0-37.0); MEAN CORPUSCULAR VOLUME 98 fL (80-100); MONOCYTES # (AUTO) 0.6 K/uL (0.1-1.0); MONOCYTES % (AUTO) 10.8 % (2.0-9.0); NEUTROPHILS # (AUTO) 3.4 K/uL (1.8-7.7); NEUTROPHILS % (AUTO) 62.1 % (40.0-70.0); PLATELET COUNT (AUTO) 249 K/uL (150-450); RED BLOOD CELL COUNT(AUTO) 3.19 MIL/uL (4.50-5.90); RED CELL DISTRIBUTION WIDTH 13.2 % (11.5-14.5); WHITE BLOOD COUNT (AUTO) 5.5 K/uL (4.5-11.0)
[2023-09-16 06:57] LABS: ANION GAP 8 mmol/L (8-16); CALCIUM, TOTAL 8.7 mg/dL (8.8-10.5); CARBON DIOXIDE 27 mmol/L (22-29); CHLORIDE 104 mmol/L (98-107); CHOL/HDL RATIO 1.9 (4.2-7.3); CHOLESTEROL 109 mg/dL (131-200); CREATININE 1.12 mg/dL (0.60-1.30); GLOMERULAR FILTR. RATE CALC > 60 mL/min (>60); GLUCOSE,RANDOM 90 mg/dL (70-110); HDL CHOLESTEROL 57 mg/dL (40-60); LDL CHOL (CALC.) 46 mg/dL (0-130); POTASSIUM 4.4 mmol/L (3.5-5.1); SODIUM SERUM 139 mmol/L (136-145); TRIGLYCERIDES 32 mg/dL (15-150); UREA NITROGEN, BLOOD 17 mg/dL (7-18)
[2023-09-16 07:12] LABS: TROPONIN I-HIGH SENSITIVITY 11 ng/L (<76)
[2023-09-16 07:25] VITALS: BP 161/101; PULSE 68; RESP 19; TEMP 97.5
[2023-09-16] MEDS: PANTOPRAZOLE SODIUM 40 MG DR TABLET PO SCH (08:46)
[2023-09-16] MEDS: ATORVASTATIN CALCIUM 20 MG TABLET PO SCH (08:46)
[2023-09-16] MEDS: RisperiDONE 1 MG TABLET PO SCH ×2 (08:46→20:36)
[2023-09-16] MEDS ORDERED: ATORVASTATIN CALCIUM 20 MG TABLET PO SCH (09:00)
[2023-09-16] MEDS: AmLODIPine BESYLATE 5 MG TABLET PO SCH (11:48)
[2023-09-16 16:18] VITALS: BP 168/82; PULSE 86; RESP 18; TEMP 97.7
[2023-09-16 19:50] VITALS: BP 142/71; PULSE 82; RESP 19; TEMP 98
[2023-09-17 05:20] VITALS: BP 161/76; PULSE 76; RESP 18; TEMP 98
[2023-09-17 07:53] LABS: BASOPHILS % (AUTO) 0.6 % (0.0-2.0); EOSINOPHILS % (AUTO) 3.6 % (1.0-6.0); HEMATOCRIT 34.2 % (41-53); HEMOGLOBIN 11.8 g/dL (13.5-17.5); LYMPHOCYTES # (AUTO) 1.3 K/uL (1.0-4.8); LYMPHOCYTES % (AUTO) 25.7 % (22.0-44.0); MEAN CORPUSCULAR HEMOGLOBIN 33.7 pg (26.0-34.0); MEAN CORPUSCULAR HGB CONC 34.5 G/dL (31.0-37.0); MEAN CORPUSCULAR VOLUME 98 fL (80-100); MONOCYTES # (AUTO) 0.6 K/uL (0.1-1.0); NEUTROPHILS # (AUTO) 3.1 K/uL (1.8-7.7); NEUTROPHILS % (AUTO) 59.1 % (40.0-70.0); PLATELET COUNT (AUTO) 280 K/uL (150-450); WHITE BLOOD COUNT (AUTO) 5.2 K/uL (4.5-11.0)
[2023-09-17 08:05] LABS: ANION GAP 7 mmol/L (8-16); CALCIUM, TOTAL 9.6 mg/dL (8.8-10.5); CARBON DIOXIDE 28 mmol/L (22-29); CHLORIDE 101 mmol/L (98-107); CREATININE 1.11 mg/dL (0.60-1.30); GLOMERULAR FILTR. RATE CALC > 60 mL/min (>60); GLUCOSE,RANDOM 92 mg/dL (70-110); POTASSIUM 3.9 mmol/L (3.5-5.1); SODIUM SERUM 136 mmol/L (136-145); UREA NITROGEN, BLOOD 12 mg/dL (7-18)
[2023-09-17 08:08] VITALS: BP 154/91; PULSE 83; RESP 19; TEMP 98.2
[2023-09-17 16:54] VITALS: BP 148/85; PULSE 78; RESP 18; TEMP 98.2
[2023-09-17 19:20] VITALS: BP 129/86; PULSE 87; RESP 20; TEMP 98
[2023-09-17] MEDS: HYDROCODONE/ACETAMINOPHEN 5-325 MG TABLET PO PRN (22:07)
[2023-09-18 04:15] VITALS: BP 149/76; PULSE 77; RESP 20; TEMP 97.8
[2023-09-18 08:00] VITALS: BP 155/81; PULSE 74; RESP 18; TEMP 97.6
[2023-09-18] MEDS ORDERED: AMLO-257 PO (12:29)
[2023-09-18 16:03] VITALS: BP 150/75; PULSE 79; RESP 18; TEMP 98.1
[2023-09-18] MEDS: CIPROFLOXACIN 400 MG/D5% WATER 200 ML IV SCH (16:17)
[2023-09-18 19:55] VITALS: BP 145/72; PULSE 79; RESP 20; TEMP 97.4
[2023-09-19 03:25] VITALS: BP 149/76; PULSE 77; RESP 20; TEMP 97.8
[2023-09-19 08:16] VITALS: BP 158/81; PULSE 81; RESP 20; TEMP 97.9
[2023-09-19] MEDS ORDERED: CIPR500S4 PO (08:54)
[2023-09-19] MEDS ORDERED: CIPR500T10 PO (11:40)
[2023-09-19] MEDS: CIPROFLOXACIN HCL 500 MG TABLET PO ONE (12:58)
== END 2023-09-19 15:15 | disposition home or self-care (01) | DRG 463 ==
LOC: EMS 09:06 → 6N 13:02 → 6S 09-17 07:47
PROVIDERS: ADMIT Family Medicine; ATTEND Family Medicine
DX: N39.0 Urinary tract infection, site not specified (principal); G93.41 Metabolic encephalopathy; I50.9 Heart failure, unspecified; E78.00 Pure hypercholesterolemia, unspecified; K21.9 Gastro-esophageal reflux disease without esophagitis; R53.1 Weakness; R29.810 Facial weakness; Z20.822 Contact with and (suspected) exposure to COVID-19; R47.81 Slurred speech; D64.9 Anemia, unspecified; F25.9 Schizoaffective disorder, unspecified; B96.5 Pseudomonas (aeruginosa) (mallei) (pseudomallei) as the cause of diseases classified elsewhere; F32.A Depression, unspecified; N40.0 Benign prostatic hyperplasia without lower urinary tract symptoms; R29.6 Repeated falls; Z16.19 Resistance to other specified beta lactam antibiotics; Z79.899 Other long term (current) drug therapy
CPT/HCPCS: 70450; 71045; 80048; 80053; 80061; 81001; 82550; 82948; 83735; 83880; 84484; 85025; 85610; 85730; 87086; 87186; 92610; 93005; 93880; 97116; 97162; 97165; 97535; 99285; J0696; J0744; J1644; J7030; 36415-L1; 36415-TC

== ENCOUNTER 2024-02-11 13:34 | Emergency (ER) | payer OTHER, MEDICAID ==
[~2024-02-11] VITALS: Ht 177.8 cm; Wt 75.0 kg
[~2024-02-11 13:34] MED LIST changes: +ACET-66 PO; +AMLO-257 PO; -ATOR20TA PO; +ATOR20TA65 PO; +CIPR500S4 PO; +CIPR500T10 PO; -DOCU250C14 PO; +GABA-1181 PO; +HYDR25TA84 PO; +MEMA5TAB16 PO; +PANT40TA54 PO; +RISP1TAB48 PO; +TRAZ-257 PO
[2024-02-11] MEDS ORDERED: MELO-108 PO (13:52)
[2024-02-11] MEDS ORDERED: DIVA-85 PO (13:52)
[2024-02-11 16:29] LABS: APPEARANCE,URINE CLEAR (CLEAR); BILIRUBIN,URINE NEGATIVE (NEGATIVE); COLOR,URINE COLORLESS (YELLOW); GLUCOSE, URINE (UA) NEGATIVE (NEGATIVE); KETONES,URINE NEGATIVE (NEGATIVE); LEUKOCYTE ESTERASE ,URINE MODERATE (NEGATIVE); NITRATE,URINE POSITIVE (NEGATIVE); OCCULT BLOOD,URINE TRACE (NEGATIVE); PROTEIN,URINE NEGATIVE (NEGATIVE); SPECIFIC GRAVITIY, URINE 1.005 (1.003-1.030); UROBILINOGEN,URINE <=1.0 mg/dL (<=1.0)
[2024-02-11 16:35] LABS: AMPHET/METH SCREEN,URINE NEGATIVE (NEGATIVE); BARBITURATE SCREEN, URINE NEGATIVE (NEGATIVE); BENZODIAZEPINES SCREEN,URINE NEGATIVE (NEGATIVE); CANNABINOID SCREEN,URINE NEGATIVE (NEGATIVE); COCAINE SCREEN,URINE NEGATIVE (NEGATIVE); METHADONE SCREEN, URINE NEGATIVE (NEGATIVE); OPIATE SCREEN,URINE NEGATIVE (NEGATIVE); PHENCYCLIDINE SCREEN,URINE NEGATIVE (NEGATIVE)
[2024-02-11 16:36] LABS: ALCOHOL, URINE DRUG SCREEN NEGATIVE (NEGATIVE)
[2024-02-11 16:42] LABS: BASOPHILS % (AUTO) 0.6 % (0.0-2.0); EOSINOPHILS % (AUTO) 1.9 % (1.0-6.0); HEMATOCRIT 37.7 % (41-53); HEMOGLOBIN 12.4 g/dL (13.5-17.5); LYMPHOCYTES # (AUTO) 1.8 K/uL (1.0-4.8); LYMPHOCYTES % (AUTO) 27.8 % (22.0-44.0); MEAN CORPUSCULAR HGB CONC 32.8 G/dL (31.0-37.0); MEAN CORPUSCULAR VOLUME 101 fL (80-100); MONOCYTES # (AUTO) 0.4 K/uL (0.1-1.0); MONOCYTES % (AUTO) 6.7 % (2.0-9.0); PLATELET COUNT (AUTO) 235 K/uL (150-450); RED BLOOD CELL COUNT(AUTO) 3.75 MIL/uL (4.50-5.90); RED CELL DISTRIBUTION WIDTH 14.3 % (11.5-14.5); WHITE BLOOD COUNT (AUTO) 6.4 K/uL (4.5-11.0)
[2024-02-11 16:43] LABS: BACTERIA,URINE Moderate /HPF (None Seen); RBC,URINE 0-2 /HPF (0-2); SQUAMOUS EPITHELIAL CELL,UR Rare /LPF (None Seen)
[2024-02-11 16:52] LABS: ANION GAP 8 mmol/L (8-16); CARBON DIOXIDE 26 mmol/L (22-29); CHLORIDE 98 mmol/L (98-107); CREATININE 1.45 mg/dL (0.60-1.30); GLOMERULAR FILTR. RATE CALC 56 mL/min (>60); GLUCOSE,RANDOM 110 mg/dL (70-110); POTASSIUM 4.2 mmol/L (3.5-5.1); SODIUM SERUM 132 mmol/L (136-145); UREA NITROGEN, BLOOD 11 mg/dL (7-18)
[2024-02-11 16:58] LABS: ALANINE AMINOTRANSFERASE 40 U/L (12-78); ALBUMIN 3.4 g/dL (3.4-5.0); ALKALINE PHOSPHATASE 49 U/L (46-116); ASPARTATE AMINOTRANSFERASE 74 U/L (15-37); BILIRUBIN,TOTAL 0.4 mg/dL (0.1-1.0); TOTAL PROTEIN, SERUM 7.4 g/dL (6.4-8.2)
[2024-02-11] MEDS: CEPHALEXIN MONOHYDRATE 500 MG CAPSULE PO ONE (17:03)
[2024-02-11 17:18] LABS: ALCOHOL, BLOOD (SERUM) < 3 mg/dL (0-10)
[2024-02-11 17:24] LABS: COVID AG,FIA SOURCE NASAL SWAB
[2024-02-11] MEDS: ACETAMINOPHEN 500 MG TABLET PO ONE (17:29)
[2024-02-11 17:44] LABS: SARS-COV2 (COVID) ANTIGEN,FIA Negative (Negative)
[2024-02-11] MEDS: HALOPERIDOL 5 MG TABLET PO PRN (19:32)
[2024-02-11] MEDS: LORazepam 2 MG TABLET PO PRN (19:32)
[2024-02-12 03:30] VITALS: TEMP 98.5; O2SAT 96
[2024-02-12] MEDS: LIDOCAINE 1%/EPI 1:200,000/PF 30 ML VIAL SQ ONE (03:34)
[2024-02-12] MEDS: BACITRACIN 0.9 GM PACKET OINTMENT TP ONE (03:47)
[2024-02-12] MEDS: ZOLPIDEM TARTRATE 10 MG TABLET PO PRN (19:27)
[2024-02-14 10:08] VITALS: BP 155/88; PULSE 71; RESP 17
[2024-02-14] MEDS ORDERED: TRAZ-257 PO (14:26)
[2024-02-14] MEDS ORDERED: RISP1TAB48 PO (14:26)
[2024-02-14] MEDS ORDERED: CEPH-558 PO (14:33)
[2024-02-14] MEDS: LORazepam 1 MG TABLET PO ONE (15:02)
[2024-02-14] MEDS: RisperiDONE 1 MG TABLET PO ONE (15:02)
[2024-02-14] MEDS: CEPHALEXIN MONOHYDRATE 500 MG CAPSULE PO ONE (15:03)
== END 2024-02-14 17:47 ==
LOC: EMS 13:35
DX: F79 Unspecified intellectual disabilities (principal); F20.9 Schizophrenia, unspecified; N39.0 Urinary tract infection, site not specified; I11.0 Hypertensive heart disease with heart failure; I50.9 Heart failure, unspecified; F17.210 Nicotine dependence, cigarettes, uncomplicated; Z79.899 Other long term (current) drug therapy; Z20.822 Contact with and (suspected) exposure to COVID-19
CPT/HCPCS: 99285; 87426; 80048; 80076; 80164; 81001; 85025; 36415; 87086; 87186; 80307; 96372; G0480; J3490

== ENCOUNTER 2024-04-05 18:59 | Inpatient (IN) | payer MEDICAID, OTHER ==
[~2024-04-05] VITALS: Ht 177.8 cm; Wt 59.0 kg
[~2024-04-05 18:59] MED LIST changes: +CEPH-558 PO; -CIPR500S4 PO; -CIPR500T10 PO; +DIVA-85 PO; +MELO-108 PO
[2024-04-05 21:10] LABS: APPEARANCE,URINE HAZY (CLEAR); BILIRUBIN,URINE NEGATIVE (NEGATIVE); COLOR,URINE LIGHT YELLOW (YELLOW); GLUCOSE, URINE (UA) NEGATIVE (NEGATIVE); KETONES,URINE NEGATIVE (NEGATIVE); LEUKOCYTE ESTERASE ,URINE LARGE (NEGATIVE); NITRATE,URINE NEGATIVE (NEGATIVE); OCCULT BLOOD,URINE NEGATIVE (NEGATIVE); PROTEIN,URINE NEGATIVE (NEGATIVE); SPECIFIC GRAVITIY, URINE 1.005 (1.003-1.030); UROBILINOGEN,URINE <=1.0 mg/dL (<=1.0)
[2024-04-05 21:32] LABS: BACTERIA,URINE Many /HPF (None Seen); RBC,URINE None Seen /HPF (0-2); WBC,URINE 26-50 /HPF (0-5)
[2024-04-05] MEDS ORDERED: CEPH-558 PO (21:34)
[2024-04-06] MEDS ORDERED: PANTOPRAZOLE SODIUM 40 MG/VIAL IVP ONE (02:00)
[2024-04-06 02:35] LABS: BASOPHILS % (AUTO) 0.5 % (0.0-2.0); EOSINOPHILS % (AUTO) 2.8 % (1.0-6.0); HEMATOCRIT 34.3 % (41-53); HEMOGLOBIN 11.4 g/dL (13.5-17.5); LYMPHOCYTES # (AUTO) 1.3 K/uL (1.0-4.8); MEAN CORPUSCULAR HEMOGLOBIN 33.1 pg (26.0-34.0); MEAN CORPUSCULAR HGB CONC 33.2 G/dL (31.0-37.0); MEAN CORPUSCULAR VOLUME 100 fL (80-100); MONOCYTES # (AUTO) 0.5 K/uL (0.1-1.0); MONOCYTES % (AUTO) 10.5 % (2.0-9.0); NEUTROPHILS # (AUTO) 2.9 K/uL (1.8-7.7); NEUTROPHILS % (AUTO) 60.2 % (40.0-70.0); PLATELET COUNT (AUTO) 229 K/uL (150-450); RED BLOOD CELL COUNT(AUTO) 3.44 MIL/uL (4.50-5.90); RED CELL DISTRIBUTION WIDTH 14.7 % (11.5-14.5); WHITE BLOOD COUNT (AUTO) 4.8 K/uL (4.5-11.0)
[2024-04-06] MEDS: SODIUM CHLORIDE 0.9% 1,000 ML IV ONE (02:44)
[2024-04-06] MEDS: PANTOPRAZOLE SODIUM 40 MG/VIAL IVP ONE (02:45)
[2024-04-06 02:46] LABS: CALCIUM, TOTAL 8.6 mg/dL (8.8-10.5); CREATININE 1.38 mg/dL (0.60-1.30); POTASSIUM 3.5 mmol/L (3.5-5.1)
[2024-04-06 02:49] LABS: INR 1.1 (0.9-1.1); PROTHROMBIN TIME 11.5 SEC (9.4-11.6)
[2024-04-06 02:51] LABS: ALBUMIN 3.1 g/dL (3.4-5.0); BILIRUBIN,DIRECT 0.1 mg/dL (0.00-0.20); BILIRUBIN,TOTAL 0.3 mg/dL (0.1-1.0); TOTAL PROTEIN, SERUM 6.8 g/dL (6.4-8.2)
[2024-04-06 02:54] LABS: TROPONIN I-HIGH SENSITIVITY 12 ng/L (<76)
[2024-04-06] MEDS: PANTOPRAZOLE SODIUM 80 MG in SODIUM CHLORIDE 0.9% 100 ML IV SCH ×2 (03:10→11:25)
[2024-04-06] MEDS ORDERED: ONDANSETRON HCL 4 MG/2 ML VIAL IVP PRN (06:00)
[2024-04-06] MEDS ORDERED: ACETAMINOPHEN 325 MG TABLET PO PRN (06:00)
[2024-04-06] MEDS: CefTRIAXone 1 GM/DEXTROSE 50 ML IV SCH (06:49)
[2024-04-06] MEDS: RINGERS SOLUTION,LACTATED 1,000 ML IV SCH (06:54)
[2024-04-06] MEDS ORDERED: LISI10TA24 PO (07:39)
[2024-04-06] MEDS: HydrALAZINE HCL 25 MG TABLET PO SCH (09:00)
[2024-04-06] MEDS: LISINOPRIL 10 MG TABLET PO SCH (09:37)
[2024-04-06] MEDS: AmLODIPine BESYLATE 5 MG TABLET PO SCH (09:37)
[2024-04-06 13:03] VITALS: BP 162/81; PULSE 72; RESP 18; TEMP 97.6; O2SAT 99
[2024-04-06 14:34] LABS: BASOPHILS % (AUTO) 0.6 % (0.0-2.0); EOSINOPHILS % (AUTO) 1.7 % (1.0-6.0); HEMATOCRIT 33.7 % (41-53); HEMOGLOBIN 11.3 g/dL (13.5-17.5); LYMPHOCYTES # (AUTO) 1.2 K/uL (1.0-4.8); LYMPHOCYTES % (AUTO) 21.3 % (22.0-44.0); MEAN CORPUSCULAR HEMOGLOBIN 33.3 pg (26.0-34.0); MEAN CORPUSCULAR HGB CONC 33.5 G/dL (31.0-37.0); MEAN CORPUSCULAR VOLUME 99 fL (80-100); MONOCYTES # (AUTO) 0.5 K/uL (0.1-1.0); MONOCYTES % (AUTO) 9.2 % (2.0-9.0); NEUTROPHILS # (AUTO) 3.7 K/uL (1.8-7.7); NEUTROPHILS % (AUTO) 67.2 % (40.0-70.0); PLATELET COUNT (AUTO) 224 K/uL (150-450); RED BLOOD CELL COUNT(AUTO) 3.39 MIL/uL (4.50-5.90); RED CELL DISTRIBUTION WIDTH 14.2 % (11.5-14.5); WHITE BLOOD COUNT (AUTO) 5.4 K/uL (4.5-11.0)
[2024-04-06 17:20] VITALS: BP 142/107; PULSE 64; RESP 18; TEMP 97.9; O2SAT 97
[2024-04-06 20:00] VITALS: BP 141/84; PULSE 75
[2024-04-06 20:05] VITALS: BP 132/74; PULSE 75
[2024-04-06 20:30] VITALS: BP 135/74; PULSE 75; RESP 19; TEMP 98.3; O2SAT 99
[2024-04-07 00:20] VITALS: BP 144/74; PULSE 71; RESP 18; TEMP 98.1; O2SAT 100
[2024-04-07] MEDS: GABAPENTIN 100 MG CAPSULE PO SCH (02:01)
[2024-04-07] MEDS: TraZODone HCL 100 MG TABLET PO SCH (02:01)
[2024-04-07] MEDS: RisperiDONE 1 MG TABLET PO SCH (02:01)
[2024-04-07 04:00] VITALS: BP 141/84; PULSE 75; RESP 18; TEMP 98.3; O2SAT 100
[2024-04-07 07:23] LABS: BASOPHILS % (AUTO) 0.8 % (0.0-2.0); EOSINOPHILS % (AUTO) 2.3 % (1.0-6.0); HEMATOCRIT 30.3 % (41-53); HEMOGLOBIN 10.1 g/dL (13.5-17.5); LYMPHOCYTES # (AUTO) 1.5 K/uL (1.0-4.8); LYMPHOCYTES % (AUTO) 32.7 % (22.0-44.0); MEAN CORPUSCULAR HEMOGLOBIN 33.2 pg (26.0-34.0); MEAN CORPUSCULAR HGB CONC 33.4 G/dL (31.0-37.0); MEAN CORPUSCULAR VOLUME 99 fL (80-100); MONOCYTES # (AUTO) 0.6 K/uL (0.1-1.0); MONOCYTES % (AUTO) 13.9 % (2.0-9.0); NEUTROPHILS # (AUTO) 2.3 K/uL (1.8-7.7); NEUTROPHILS % (AUTO) 50.3 % (40.0-70.0); PLATELET COUNT (AUTO) 209 K/uL (150-450); RED BLOOD CELL COUNT(AUTO) 3.05 MIL/uL (4.50-5.90); RED CELL DISTRIBUTION WIDTH 14.3 % (11.5-14.5); WHITE BLOOD COUNT (AUTO) 4.5 K/uL (4.5-11.0)
[2024-04-07 07:40] LABS: ANION GAP 11 mmol/L (8-16); CALCIUM, TOTAL 8.2 mg/dL (8.8-10.5); CARBON DIOXIDE 28 mmol/L (22-29); CHLORIDE 102 mmol/L (98-107); CREATININE 1.31 mg/dL (0.60-1.30); GLOMERULAR FILTR. RATE CALC > 60 mL/min (>60); GLUCOSE,RANDOM 60 mg/dL (70-110); POTASSIUM 3.3 mmol/L (3.5-5.1); SODIUM SERUM 141 mmol/L (136-145); UREA NITROGEN, BLOOD 16 mg/dL (7-18)
[2024-04-07] MEDS: HYDROmorphone HCL 2 MG/ML SYRINGE IVP PRN (07:56)
[2024-04-07 08:10] VITALS: BP 142/74; PULSE 82; RESP 18; TEMP 98; O2SAT 97
[2024-04-07] MEDS: MEMANTINE HCL 5 MG TABLET PO SCH (08:12)
[2024-04-07] MEDS: DIVALPROEX SODIUM 250 MG ER TABLET PO SCH (08:12)
[2024-04-07] MEDS: ATORVASTATIN CALCIUM 20 MG TABLET PO SCH (08:12)
[2024-04-07] MEDS: OxyCODONE HCL/ACETAMINOPHEN 5-325 MG TABLET PO PRN (08:57)
[2024-04-07] MEDS ORDERED: PANTOPRAZOLE SODIUM 40 MG DR TABLET PO SCH (09:00)
[2024-04-07] MEDS ORDERED: HydrALAZINE HCL 25 MG TABLET PO SCH (09:00)
[2024-04-07] MEDS ORDERED: AmLODIPine BESYLATE 5 MG TABLET PO SCH (09:00)
[2024-04-07] MEDS ORDERED: LISINOPRIL 10 MG TABLET PO SCH (09:00)
[2024-04-07 11:14] VITALS: BP 114/69; PULSE 83; RESP 19; TEMP 98.1; O2SAT 99
[2024-04-07 15:03] VITALS: BP 136/91; PULSE 68; RESP 18; TEMP 98; O2SAT 95
[2024-04-07 19:35] LABS: BASOPHILS % (AUTO) 0.6 % (0.0-2.0); EOSINOPHILS % (AUTO) 1.9 % (1.0-6.0); LYMPHOCYTES # (AUTO) 1.1 K/uL (1.0-4.8); MEAN CORPUSCULAR HEMOGLOBIN 33.2 pg (26.0-34.0); MEAN CORPUSCULAR HGB CONC 33.2 G/dL (31.0-37.0); MEAN CORPUSCULAR VOLUME 100 fL (80-100); MONOCYTES # (AUTO) 0.6 K/uL (0.1-1.0); MONOCYTES % (AUTO) 10.2 % (2.0-9.0); NEUTROPHILS # (AUTO) 3.7 K/uL (1.8-7.7); NEUTROPHILS % (AUTO) 67.3 % (40.0-70.0); PLATELET COUNT (AUTO) 246 K/uL (150-450); RED CELL DISTRIBUTION WIDTH 14.6 % (11.5-14.5); WHITE BLOOD COUNT (AUTO) 5.6 K/uL (4.5-11.0)
[2024-04-07 20:30] VITALS: BP 138/71; PULSE 83; RESP 18; TEMP 98.3; O2SAT 96
[2024-04-08 00:25] VITALS: BP 135/70; PULSE 76; RESP 17; TEMP 98.1; O2SAT 95
[2024-04-08 04:00] VITALS: BP 129/81; PULSE 81; RESP 18; TEMP 97.7; O2SAT 98
[2024-04-08 08:20] VITALS: BP 107/53; PULSE 92; RESP 18; TEMP 97.5; O2SAT 97
[2024-04-08 09:18] LABS: BASOPHILS % (AUTO) 0.2 % (0.0-2.0); EOSINOPHILS % (AUTO) 0.3 % (1.0-6.0); HEMATOCRIT 33.9 % (41-53); HEMOGLOBIN 11.4 g/dL (13.5-17.5); LYMPHOCYTES # (AUTO) 0.8 K/uL (1.0-4.8); LYMPHOCYTES % (AUTO) 10.5 % (22.0-44.0); MEAN CORPUSCULAR HEMOGLOBIN 33.5 pg (26.0-34.0); MEAN CORPUSCULAR HGB CONC 33.6 G/dL (31.0-37.0); MEAN CORPUSCULAR VOLUME 100 fL (80-100); MONOCYTES # (AUTO) 0.8 K/uL (0.1-1.0); MONOCYTES % (AUTO) 10.1 % (2.0-9.0); NEUTROPHILS % (AUTO) 78.9 % (40.0-70.0); PLATELET COUNT (AUTO) 252 K/uL (150-450); RED CELL DISTRIBUTION WIDTH 14.4 % (11.5-14.5); WHITE BLOOD COUNT (AUTO) 7.6 K/uL (4.5-11.0)
[2024-04-08 09:27] LABS: ANION GAP 8 mmol/L (8-16); CALCIUM, TOTAL 8.7 mg/dL (8.8-10.5); CARBON DIOXIDE 28 mmol/L (22-29); CHLORIDE 99 mmol/L (98-107); CREATININE 1.05 mg/dL (0.60-1.30); GLOMERULAR FILTR. RATE CALC > 60 mL/min (>60); GLUCOSE,RANDOM 116 mg/dL (70-110); POTASSIUM 3.7 mmol/L (3.5-5.1); SODIUM SERUM 135 mmol/L (136-145); UREA NITROGEN, BLOOD 15 mg/dL (7-18)
[2024-04-08] MEDS ORDERED: PANT-31 PO (10:17)
[2024-04-08 12:00] VITALS: BP 128/86; PULSE 86; RESP 18; TEMP 97.3; O2SAT 99
[2024-04-08] MEDS ORDERED: PANTOPRAZOLE SODIUM 40 MG/VIAL IVP SCH (21:00)
== END 2024-04-08 17:10 | disposition short-term general hospital (02) | DRG 377 ==
LOC: EMS 19:00 → EDH 04-06 06:27 → 5S 04-06 12:23
PROVIDERS: ADMIT Internal Medicine; ATTEND Internal Medicine
DX: K25.4 Chronic or unspecified gastric ulcer with hemorrhage (principal); N17.0 Acute kidney failure with tubular necrosis; N39.0 Urinary tract infection, site not specified; R64 Cachexia; D64.9 Anemia, unspecified; T39.395A Adverse effect of other nonsteroidal anti-inflammatory drugs [NSAID], initial encounter; F20.9 Schizophrenia, unspecified; N40.0 Benign prostatic hyperplasia without lower urinary tract symptoms; Z87.891 Personal history of nicotine dependence; Z91.199 Patient's noncompliance with other medical treatment and regimen due to unspecified reason; Y92.89 Other specified places as the place of occurrence of the external cause
CPT/HCPCS: 80048; 80076; 81001; 82271; 83690; 83735; 84484; 85025; 85610; 85730; 86850; 86900; 86901; 87086; 87186; 93005; 99285; C9113; J0696; J1170; J7030; J7050; J7120

== ENCOUNTER 2024-08-24 21:01 | Emergency (ER) | payer OTHER ==
[~2024-08-24] VITALS: Ht 167.6 cm; Wt 68.2 kg
[~2024-08-24 21:01] MED LIST changes: -AMLO-257 PO; -ATOR20TA65 PO; -MELO-108 PO; -MEMA5TAB16 PO; +PANT-31 PO; -PANT40TA54 PO
[2024-08-24 21:05] VITALS: TEMP 98
[2024-08-24 23:47] LABS: COVID AG,FIA SOURCE NASAL SWAB
[2024-08-24 23:53] LABS: APPEARANCE,URINE CLEAR (CLEAR); BILIRUBIN,URINE NEGATIVE (NEGATIVE); COLOR,URINE LIGHT YELLOW (YELLOW); GLUCOSE, URINE (UA) NEGATIVE (NEGATIVE); KETONES,URINE NEGATIVE (NEGATIVE); LEUKOCYTE ESTERASE ,URINE SMALL (NEGATIVE); OCCULT BLOOD,URINE NEGATIVE (NEGATIVE); PROTEIN,URINE TRACE mg/dL (NEGATIVE); UROBILINOGEN,URINE <=1.0 mg/dL (<=1.0)
[2024-08-24 23:55] LABS: SARS-COV2 (COVID) ANTIGEN,FIA Negative (Negative)
[2024-08-24 23:58] LABS: NITRATE,URINE NEGATIVE (NEGATIVE)
[2024-08-24 23:59] LABS: BACTERIA,URINE Few /HPF (None Seen); RBC,URINE None Seen /HPF (0-2); SQUAMOUS EPITHELIAL CELL,UR Few /LPF (None Seen)
[2024-08-25] LABS: AMPHET/METH SCREEN,URINE NEGATIVE (NEGATIVE); BARBITURATE SCREEN, URINE NEGATIVE (NEGATIVE); BENZODIAZEPINES SCREEN,URINE NEGATIVE (NEGATIVE); CANNABINOID SCREEN,URINE NEGATIVE (NEGATIVE); COCAINE SCREEN,URINE NEGATIVE (NEGATIVE); METHADONE SCREEN, URINE NEGATIVE (NEGATIVE); OPIATE SCREEN,URINE NEGATIVE (NEGATIVE); PHENCYCLIDINE SCREEN,URINE NEGATIVE (NEGATIVE)
[2024-08-25 00:22] LABS: ALCOHOL, URINE DRUG SCREEN NEGATIVE (NEGATIVE)
[2024-08-25 02:01] LABS: BASOPHILS % (AUTO) 0.2 % (0.0-2.0); EOSINOPHILS % (AUTO) 0.8 % (1.0-6.0); HEMOGLOBIN 10.8 g/dL (13.5-17.5); LYMPHOCYTES # (AUTO) 1.2 K/uL (1.0-4.8); LYMPHOCYTES % (AUTO) 18.6 % (22.0-44.0); MEAN CORPUSCULAR HEMOGLOBIN 30.8 pg (26.0-34.0); MEAN CORPUSCULAR HGB CONC 32.7 G/dL (31.0-37.0); MEAN CORPUSCULAR VOLUME 94 fL (80-100); MONOCYTES # (AUTO) 0.5 K/uL (0.1-1.0); MONOCYTES % (AUTO) 8.3 % (2.0-9.0); NEUTROPHILS # (AUTO) 4.6 K/uL (1.8-7.7); NEUTROPHILS % (AUTO) 72.1 % (40.0-70.0); PLATELET COUNT (AUTO) 245 K/uL (150-450); RED CELL DISTRIBUTION WIDTH 23.5 % (11.5-14.5); WHITE BLOOD COUNT (AUTO) 6.4 K/uL (4.5-11.0)
[2024-08-25 02:06] LABS: ANION GAP 7 mmol/L (8-16); CALCIUM, TOTAL 8.5 mg/dL (8.8-10.5); CARBON DIOXIDE 31 mmol/L (22-29); CHLORIDE 107 mmol/L (98-107); CREATININE 1.22 mg/dL (0.60-1.30); GLOMERULAR FILTR. RATE CALC > 60 mL/min (>60); GLUCOSE,RANDOM 80 mg/dL (70-110); POTASSIUM 4.1 mmol/L (3.5-5.1); SODIUM SERUM 145 mmol/L (136-145); UREA NITROGEN, BLOOD 22 mg/dL (7-18)
[2024-08-25 02:13] LABS: LACTIC ACID 0.8 mmol/L (0.4-2.0)
[2024-08-25 02:15] LABS: ALANINE AMINOTRANSFERASE 37 U/L (12-78); ALBUMIN 2.8 g/dL (3.4-5.0); ALKALINE PHOSPHATASE 68 U/L (46-116); ASPARTATE AMINOTRANSFERASE 33 U/L (15-37); BILIRUBIN,TOTAL 0.3 mg/dL (0.1-1.0); TOTAL PROTEIN, SERUM 6.6 g/dL (6.4-8.2); TROPONIN I-HIGH SENSITIVITY 13 ng/L (<76)
[2024-08-25 02:19] LABS: ALCOHOL, BLOOD (SERUM) < 3 mg/dL (0-10)
[2024-08-25 02:20] LABS: B-TYPE NATRIURETIC PEPTIDE 50 pg/mL (0-100)
[2024-08-25 06:23] VITALS: BP 140/81; PULSE 61; RESP 16; O2SAT 99
== END 2024-08-25 07:03 | disposition home or self-care (01) ==
LOC: EMS 21:01
DX: R41.82 Altered mental status, unspecified (principal); F17.210 Nicotine dependence, cigarettes, uncomplicated; F20.9 Schizophrenia, unspecified; N40.0 Benign prostatic hyperplasia without lower urinary tract symptoms; Z79.899 Other long term (current) drug therapy; Z20.822 Contact with and (suspected) exposure to COVID-19
CPT/HCPCS: 99284; 87426; 80048; 80076; 81001; 83605; 83880; 84484; 85025; 87040; 93005; 80307; 84145; 36415; G0480